=== PATIENT | male | born 1990 | race Caucasian/White ===

== ENCOUNTER 2023-05-28 05:26 | Emergency (ER) | payer OTHER, SELFPAY ==
[2023-05-28 05:34] VITALS: BP 142/99; PULSE 128; RESP 22; TEMP 36.7; O2SAT 98; BMI 22.9
--- NOTE | 2023-05-28 06:00 | ED.C_ITS ---
HPI - Psych General: Chief Complaint: Psychiatric Symptoms Stated Complaint: panic attack Time Seen by Provider: 05/28/23 05:52 Source: patient Mode of arrival: ambulatory History of Present Illness: 32-year-old male presents emergency room with complaints of anxiety. He states he has PTSD and had a bad dream and woke up with a panic attack. He is hyperventilating on arrival here he is extremely anxious but not cooperative. Patient states he is on Seroquel and venlafaxine. No other medications. He denies homicidal or suicidal ideation. Patient refuses to allow exam initially. Makes veiled references to violent behavior even with questioning during history. Relieving factors: none Exacerbating factors: none Associated symptoms: Reports no associated symptoms Review of Systems Const: Denies: fever(s) or chills ENMT: Denies: throat pain, ear or mastoid pain, nasal discharge or nasal congestion Card: Denies: chest pain, edema, dyspnea on exertion or orthopnea Resp: Reports: dyspnea; Denies: productive cough or non-productive cough GI: Denies: abdominal pain, nausea or vomiting : Denies: flank pain, dysuria, urinary frequency or urinary urgency Skin/Breast: Denies: rash or pruritus Psych: Reports: anxiety PFS ED PFSH: Medical History (Updated 05/28/23 @ 06:58 by Av Watkins DO) PTSD (post-traumatic stress disorder) Physical Exam Const: GENERAL APPEARANCE: anxious ORIENTATION/CONSCIOUSNESS: Yes awake, Yes oriented to person, Yes oriented to place and Yes oriented to time HENMT: COMMON NORMALS: normocephalic, atraumatic and hearing grossly normal bilaterally HEAD & SCALP: normocephalic and atraumatic Neuro: SENSORIUM/ORIENTATION: Yes oriented to person, Yes oriented to place and Yes oriented to time Psych: ATTITUDE: Yes paranoid, Yes agitated and Yes aggressive ACTIVITY/MO TOR BEHAVIOR: Yes restless Course Vital Signs: Vital signs: Vital Signs Temperature 98.0 F 05/28/23 05:34 Pulse Rate 128 H 05/28/23 05:34 Respiratory Rate 22 H 05/28/23 05:34 Blood Pressure 142/99 05/28/23 05:34 Pulse Oximetry 98 05/28/23 05:34 Oxygen Delivery Me thod Room Air 05/28/23 05:34 MDM - Psych Medical Decision Making Patient is neither homicidal or suicidal. He is extremely anxious and has difficult time coping. In talking to him he is not managing to cope well himself does not seem to have the skill set to manage his anxiety and PTSD at this point and also does not seem to have adequate social support. Recommended to him that he be admitted to psychiatry for further evaluation and medication adjustments. He does not wish to do this. I do not have anything at this point that would justify a 96-hour hold. He is improved some since receiving the Ativan. We will discharge him home with hydroxyzine as needed and encouraged the patient to follow-up just with the [place] and [facility]. Patient assures me he has been taking medications and has adequate supply at this time. He is advised to return if he has any worsening problems. [facility] or to establish with behavioral health clinic here in [facility]. Unfortunately was unable to convince the patient to allow us to admit him. Medical Records I reviewed the patient's medical records. Lab Data I reviewed the patient's lab results. 05/28/23 06:52 05/28/23 06:52 No radiology studies performed this visit Discharge Plan Discharge Patient Disposition: Home Clinical Impression: Acute anxiety, PTSD (post-traumatic stress disorder) Condition: Stable Prescriptions: New hydroxyzine HCl 50 mg tablet 50 mg PO Q6H PRN (Reason: anxiety) Qty: 10 0RF Discharge Orders: Discharge ED (Routine); Ordered 05/28/23 Ordered By: Av Watkins Referrals: Raj Hart, DO [Primary Care Provider] - Discharge Diet: Usual diet Discharge Activity: Resume usual activity Patient Instructions: Opioid Safety, Pain Management Activity Restrictions/Additional Instructions: Recommend you follow-up with your primary care doctor as soon as you are able. Also recommend that you establish with a psychiatrist either through the [place] or through behavioral health clinic here in [facility]. If you have any worsening symptoms or difficulty managing return to the emergency room. Coding Level of Care Code ED Production Supervisor for Kenzie Vallejo
[2023-05-28] MEDS: LORazepam 1 mg Tablet 2 MG PO (06:05)
[2023-05-28 07:02] LABS: Basophils # 0.1 10^3/uL (0.0-0.1); Basophils % 0.3 %; Eosinophils % 0.2 %; Lymphocytes % 11.3 %; Mean Corpuscular HGB Conc 35.5 g/dL (30-55); Mean Corpuscular Hemoglobin 29.3 pg (27-33); Mean Corpuscular Volume 82.6 fl (82-101); Mean Platelet Volume 9.9 fL (7.4-10.4); Monocytes % 5.8 %; Neutrophils # 14.36 10^3/uL (1.8-7.7); Neutrophils % 82.1 %; Nucleated Red Blood Cells % 0 %; Platelet Count 317 10^3/cmm (157-399); Red Blood Count 4.84 10^6/uL (3.85-5.65)
[2023-05-28 07:17] LABS: Alanine Aminotransferase 10 U/L (0-41); Albumin Level 4.3 g/dL (3.5-5.2); Alkaline Phosphatase 80 U/L (40-130); Anion Gap 16.2 (5-19); Aspartate Amino Transferase 15 U/L (0-40); Blood Urea Nitrogen 6 mg/dL (6-20); Calcium 9.2 mg/dL (8.5-10.5); Carbon Dioxide 23 mmol/L (22-29); Chloride 102 mmol/L (98-107); Globulin 2.8 g/dL (1.3-4.6); Glomerular Filtration Rate 110.7 mL/min (90-130); Glucose 95 mg/dL (65-115); Osmolality Calculated 283 mOsm/kg (285-295); Potassium 3.2 mmol/L (3.5-5.1); Salicylate 0.4 mg/dL (3-10); Sodium 138 mmol/L (136-145); Total Bilirubin 0.2 mg/dL (0.15-1.2); Total Protein 7.1 g/dL (6.6-8.7)
[2023-05-28 07:18] LABS: Acetaminophen < 5.0 ug/mL (10-30)
== END 2023-05-28 07:02 | disposition home or self-care (01) ==
PROVIDERS: Emergency Medicine; Emergency Provider Family Medicine; PCP Emergency Medicine Emergency Medical Services
DX: F41.9 Anxiety disorder, unspecified (principal); F43.10 Post-traumatic stress disorder, unspecified
CPT/HCPCS: 36415; 80053; 80307; 85025; 99283